=== PATIENT | male | born 1990 | race American Indian/Alaskan Native ===

== ENCOUNTER 2019-01-30 22:57 | Emergency (ER) | payer OTHER ==
[2019-01-30 23:10] VITALS: BP 126/79
[2019-01-31] MEDS ORDERED: IBUPROFEN PO ONE (01:05)
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
--- NOTE | 2019-01-31 01:15 | Cat Scan Report ---
PROCEDURE: CT HEAD/BRAIN WO CON TECHNIQUE: Computerized tomography of the head was performed without contrast material. CT DOSE LENGTH PRODUCT: 1024.6 mGycm HISTORY: head injury, +LOC COMPARISONS: None . FINDINGS: Skull and scalp: Normal . Paranasal sinuses: Normal . Ventricles and subarachnoid spaces: Normal . Cerebrum: No evidence of hemorrhage, acute infarction or mass . Cerebellum and brainstem: No evidence of hemorrhage, acute infarction or mass . Vasculature: Normal . Other: None . ASPECTS: 10 IMPRESSION: Normal Examination . This document is electronically signed by Milka Collins DO., January 31 2019 01:13:13 AM ET
== END 2019-01-31 01:30 | disposition home or self-care (01) ==
LOC: ED 22:57
DX: S01.81XA Laceration without foreign body of other part of head, initial encounter (principal); F17.200 Nicotine dependence, unspecified, uncomplicated; W22.8XXA Striking against or struck by other objects, initial encounter; Y93.89 Activity, other specified; Y92.89 Other specified places as the place of occurrence of the external cause; Y99.8 Other external cause status
CPT/HCPCS: 70450

== ENCOUNTER 2022-06-29 18:07 | Emergency (ER) | payer SELFPAY ==
[2022-06-29] MEDS ORDERED: SODIUM CHLORIDE 0.9% 1000 ML 1,000 ML IV ONE (18:40)
--- NOTE | 2022-06-29 18:45 | Emergency Department Report ---
ED General Adult HPI - General Chief complaint: Overdose Stated complaint: OVERDOSE PUI?: No Time Seen by Provider: 06/29/22 18:37 Source: patient, EMS Mode of arrival: Stretcher Limitations: No Limitations - History of Present Illness Initial comments: 32-year-old male brought in by EMS with concerns of overdose. Patient responded to 1 dose of Narcan. According to patient he only takes tramadol to help him sleep. Patient denies attempted overdose or suicide attempt. On my initial evaluation patient is AOx4. Patient denies any other symptoms. Severity scale (0 -10): 0 - Related Data Previous Rx's Medication Instructions Recorded Last Taken Type Naloxone HCl [Narcan Nasal [place]] 4 mg NS Q3M #1 spray 06/29/22 Unknown Rx Allergies Allergy/AdvReac Type Severity Reaction Status Date / Time No Known Allergies Allergy Unverified 01/30/19 23:23 ED Review of Systems ROS: Stated complaint: OVERDOSE Other details as noted in HPI Comment: All other systems reviewed and negative Constitutional: no symptoms reported Eyes: as per HPI ENT: as per HPI Respiratory: no symptoms reported, see HPI Cardiovascular: as per HPI Endocrine: no symptoms reported, see HPI Gastrointestinal: as per HPI Genitourinary: as per HPI Musculoskeletal: as per HPI Skin: as per HPI Neurological: as per HPI Psychiatric: as per HPI Hematological/Lymphatic: as per HPI ED Past Medical Hx - Social History Smoking Status: Current Every Day Smoker - Medications Home Medications: Home Medications Medication Instructions Recorded Confirmed Last Taken Type Naloxone HCl [Narcan Nasal [place]] 4 mg NS Q3M #1 spray 06/29/22 Unknown Rx ED Physical Exam - General Limitations: No Limitations General appearance: alert, in no apparent distress - Head Head exam: Present: atraumatic, normocephalic, normal inspection - Eye Eye exam: Present: normal appearance, PERRL, EOMI Pupils: Present: normal accommodation - ENT ENT exam: Present: normal exam, mucous membranes moist - Neck Neck exam: Present: normal inspection, full ROM - Respiratory Respiratory exam: Present: normal lung sounds bilaterally - Cardiovascular Cardiovascular Exam: Present: regular rate, normal rhythm, normal heart sounds - GI/Abdominal GI/Abdominal exam: Present: soft - Extremities Exam Extremities exam: Present: normal inspection, full ROM - Back Exam Back exam: Present: normal inspection, full ROM - Neurological Exam Neurological exam: Present: alert, oriented X3, CN II-XII intact - Psychiatric Psychiatric exam: Present: normal affect, normal mood. Absent: depressed, agitated, anxious, flat affect, manic, homicidal ideation, suicidal ideation - Skin Skin exam: Present: normal color ED Course Vital Signs 06/29/22 06/29/22 06/29/22 18:07 19:05 19:15 Temperature 98.3 F Pulse Rate 115 H 100 H Respiratory 16 13 Rate Blood Pressure 121/94 Blood Pressure 140/93 [Left] O2 Sat by Pulse 97 95 96 Oximetry 06/29/22 06/29/22 06/29/22 19:31 19:47 20:05 Temperature Pulse Rate 107 H Respiratory 19 210 H Rate Blood Pressure 129/81 129/81 Blood Pressure [Left] O2 Sat by Pulse 97 95 100 Oximetry 06/29/22 20:07 Temperature Pulse Rate Respiratory Rate Blood Pressure 129/81 Blood Pressure [Left] O2 Sat by Pulse 80 L Oximetry Critical care attestation.: If time is entered above; I have spent that time in minutes in the direct care of this critically ill patient, excluding procedure time. ED Disposition Clinical Impression: Polysubstance abuse Disposition: 01 HOME / SELF CARE / HOMELESS Is pt being admited?: No Does the pt Need Aspirin: No Condition: Stable Instructions: Substance Use Disorder Prescriptions: Naloxone HCl [Narcan Nasal [place]] 4 mg NS Q3M #1 spray Time of Disposition: 20:13
[2022-06-29 18:52] LABS: Amphetamine Screen,Urine Negative; Benzodiazepines Screen,Urine Negative; Methadone Screen,Urine Negative; Opiate Screen,Urine Negative
[2022-06-29 19:36] LABS: Cannabinoid Screen,Urine Positive; Cocaine Screen,Urine Positive
[2022-06-29 20:11] VITALS: BP 129/81
== END 2022-06-29 20:21 | disposition home or self-care (01) ==
LOC: ED 18:07
DX: F19.10 Other psychoactive substance abuse, uncomplicated (principal); F17.200 Nicotine dependence, unspecified, uncomplicated; Z79.899 Other long term (current) drug therapy
CPT/HCPCS: 80307; 99283; J7030